=== PATIENT | male | born 1930 | race Caucasian/White ===

== ENCOUNTER 2017-06-17 02:09 | Outpatient (CLI) | payer MEDICARE, OTHER ==
[~2017-06-17 02:09] MED LIST: ASCO500C15 PO; ATOR40TA PO; BIOT5000 PO; CLOP75TA15 PO; CYAN-19 PO; DOCU-28 PO; FINA5TAB11 PO; ISOS30TA6 PO; LISI-604 PO; MAGN400C PO; METO25TA6 PO; MULT-1085 PO; OXYGEN; PROBIOT; SITA100T11 PO; SPIIN INH; SULF1TAB49 PO; TAMS0.4C32 PO; UBIQ100C3 PO; VITAMIN D3
== END 2017-06-17 23:59 | disposition home or self-care (01) ==
LOC: DIABETIC 02:09
PROVIDERS: ATTEND Specialist
DX: E11.65 Type 2 diabetes mellitus with hyperglycemia (principal); J44.9 Chronic obstructive pulmonary disease, unspecified; F17.200 Nicotine dependence, unspecified, uncomplicated
CPT/HCPCS: G0108

== ENCOUNTER 2017-09-21 00:22 | Outpatient (CLI) | payer MEDICARE, OTHER | END 2017-09-21 23:59 | disposition home or self-care (01) | LOC: DIABETIC 00:22 | PROVIDERS: ATTEND Specialist | DX: E11.65 Type 2 diabetes mellitus with hyperglycemia (principal); I10 Essential (primary) hypertension; Z87.891 Personal history of nicotine dependence | CPT/HCPCS: G0108 ==

== ENCOUNTER 2017-12-18 04:41 | Outpatient (CLI) | payer MEDICARE, OTHER | END 2017-12-18 23:59 | disposition home or self-care (01) | LOC: DIABETIC 04:41 | PROVIDERS: ATTEND Specialist | DX: E11.9 Type 2 diabetes mellitus without complications (principal) | CPT/HCPCS: G0108 ==

== ENCOUNTER 2018-03-18 01:41 | Outpatient (CLI) | payer MEDICARE, OTHER | END 2018-03-18 23:59 | disposition home or self-care (01) | LOC: DIABETIC 01:41 | PROVIDERS: ATTEND Specialist | DX: E11.65 Type 2 diabetes mellitus with hyperglycemia (principal); I25.2 Old myocardial infarction; J44.9 Chronic obstructive pulmonary disease, unspecified; Z79.84 Long term (current) use of oral hypoglycemic drugs; Z87.891 Personal history of nicotine dependence | CPT/HCPCS: G0108 ==

== ENCOUNTER 2019-06-14 16:54 | Emergency (ER) | payer MEDICARE, OTHER ==
[~2019-06-14] VITALS: Ht 182.9 cm; Wt 81.8 kg
[~2019-06-14 16:54] MED LIST changes: -CYAN-19 PO; +CYAN100019 PO
[2019-06-14 16:56] VITALS: BP 143/59
--- NOTE | 2019-06-14 17:10 | NUR ---
Family arrived and at bedside.
--- NOTE | 2019-06-14 17:20 | NUR ---
RT at bedside.
--- NOTE | 2019-06-14 17:28 | NUR ---
xray at bedside.
[2019-06-14 17:31] LABS: ABG BASE EXCESS 4.6 mmol/L (-2.0-3.0); ABG HCO3 31.4 mmol/L (22.0-26.0); ABG PH (T) 7.367 (7.350-7.450); ABG PO2 (T) 78.5 mmHg (83-108); ALLEN'S TEST Positive; FCOHb 0.9 % (0.5-1.5); FLOW 3 L/min; FMetHb 0.3 % (0.3-1.12); FO2Hb 93.9 % (94-100); TOTAL HEMOGLOBIN 14.2 G/dl (14.0-17.9)
[2019-06-14 17:37] LABS: BASOPHILS # (AUTO) 0.1 X10'3 (0-0.2); BASOPHILS % (AUTO) 1.9 % (0-1); EOSINOPHILS # (AUTO) 0.3 X10'3 (0-0.9); EOSINOPHILS % (AUTO) 5.6 % (0-6); HEMATOCRIT 42.1 % (42.0-52.0); HEMOGLOBIN 13.8 g/dl (14.0-17.9); LYMPHOCYTES # (AUTO) 0.7 X10'3 (1.1-4.8); LYMPHOCYTES % (AUTO) 13.3 % (21-51); MEAN CORPUSCULAR HEMOGLOBIN 31.6 PG (27.0-31.0); MEAN CORPUSCULAR HGB CONC 32.9 g/dL (33.0-36.5); MEAN PLATELET VOLUME 9.1 FL (7.4-10.4); MONOCYTES # (AUTO) 0.5 X10'3 (0-0.9); MONOCYTES % (AUTO) 9.3 % (2-12); NEUTROPHILS # (AUTO) 3.5 X10'3 (1.8-7.7); NEUTROPHILS % (AUTO) 69.9 % (42-75); PLATELET COUNT 230 X10'3 (140-440); RED BLOOD COUNT 4.39 X10'6 (4.70-6.10); RED CELL DISTRIBUTION WIDTH 15.7 % (11.5-14.5); WHITE BLOOD COUNT 5.1 X10'3 (4.5-11.0)
[2019-06-14 17:51] LABS: ALANINE AMINOTRANSFERASE 18 U/L (12-78); ALBUMIN 3.2 G/DL (3.4-5.0); ALBUMIN/GLOBULIN RATIO 0.9 (1.1-1.5); ALKALINE PHOSPHATASE 62 IU/L (46-116); ANION GAP 1 (8-16); ASPARTATE AMINO TRANSFERASE 16 U/L (10-37); BILIRUBIN,TOTAL 0.5 MG/DL (0.1-1.0); BLOOD UREA NITROGEN 27 MG/DL (7-18); BUN/CREATININE RATIO 20.6 (5.4-32.0); CALCIUM 8.4 MG/DL (8.5-10.1); CHLORIDE 105 MMOL/L (99-107); CREATININE 1.31 MG/DL (0.60-1.10); GLUCOSE 151 MG/DL (70-104); POTASSIUM 4.1 MMOL/L (3.5-5.1); SODIUM 145 MMOL/L (135-145); TOTAL CARBON DIOXIDE 38.8 MMOL/L (24-32); TOTAL PROTEIN 6.6 G/DL (6.4-8.2); eGFR 52 ML/MIN
== END 2019-06-14 18:14 | disposition home or self-care (01) ==
LOC: ER 16:54
DX: R09.02 Hypoxemia (principal); R41.0 Disorientation, unspecified; F03.90 Unspecified dementia, unspecified severity, without behavioral disturbance, psychotic disturbance, mood disturbance, and anxiety; J44.9 Chronic obstructive pulmonary disease, unspecified; E11.9 Type 2 diabetes mellitus without complications; Z87.891 Personal history of nicotine dependence; Z95.5 Presence of coronary angioplasty implant and graft; Z79.899 Other long term (current) drug therapy
CPT/HCPCS: 36415; 36600; 71045; 80053; 82803; 85018; 85025; 93005; 99284